=== PATIENT | male | born 1995 ===

== ENCOUNTER 2018-11-26 12:19 | Day surgery (SDC) | payer BC, SELFPAY ==
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
--- NOTE | 2018-11-26 | PATH_ITS ---
[facility] Accession Number: [id number] . 01 Material submitted: . PART A: gastrointestinal site - GASTRIC POLYP FUNDUS PART B: esophagus - DISTAL ESOPHAGEAL BIOPSY PART C: esophagus - MID ESOPHAGEAL BIOPSIES . 01 Clinical history: . B-C: EVALUATE FOR EOSINOPHILIC ESOPHAGITIS . 02 Diagnosis: A. Gastric Fundus, Polyp: Fundic gland polyp. No evidence of Helicobacter organisms on H/E stain. Negative for intestinal metaplasia, dysplasia or malignancy. . B. Distal Esophagus, Biopsy: Squamocolumnar junctional mucosa with focal specialized intestinal metaplasia; please see comment. Up to 3 eosinophils per 40X high-power field. Negative for dysplasia or malignancy. . C. Mid Esophagus, Biopsies: Squamous epithelium with increased intraepithelial eosinophils (up to 15 per 40X high-power field); please see comment. Negative for dysplasia or malignancy. MRV/11/27/2018 . 02 Comment: Part B) The findings of focal specialized intestinal metaplasia would be consistent with Konx's esophagus in the appropriate endoscopic setting. . Part C) The finding of intraepithelal eosinophilia would support a clinical impression of eosinophilic esophagitis. The differential diagnosis also includes gastroesophageal reflux, drug reaction and food allergies. . 02 Electronically signed: . Jeff Pimentel MD, PhD, Pathologist NPI- [id number] . 01 Gross description: . Part A: GASTRIC POLYP FUNDUS: Received in formalin are 2 fragment(s) of patel, soft tissue measuring 0.1 x 0.1 x 0.1 cm to 0.2 x 0.2 x 0.2 cm which is entirely submitted and submitted entirely in 1 cassette(s) Part B: DISTAL ESOPHAGEAL BIOPSY: Received in formalin are multiple fragment(s) of patel, soft tissue measuring 0.1 x 0.1 x 0.1 cm to 0.3 x 0.2 x 0.2 cm which is entirely submitted and submitted entirely in 1 cassette(s) Part C: MID ESOPHAGEAL BIOPSIES: Received in formalin are 2 fragment(s) of patel, soft tissue measuring 0.1 x 0.1 x 0.1 cm to 0.2 x 0.2 x 0.1 cm which is entirely submitted and submitted entirely in 1 cassette(s) /[facility] /[facility] . 02 Pathologist provided ICD-10: K22.70, K20.0, K31.7 . 02 CPT . 679897, 445299, [id number] Specimen Comment: A duplicate report has been generated due to demographic updates. Performed at: 01 [facility] [address] [place] [address], [place], [place] [id number] MD Braulio Ken MD Phone: [phone] Performed at: 02 [facility] [address] [place], [place] [id number] MD Kera Jerome MD Phone: [phone]
[2018-11-26 12:59] VITALS: BP 106/60; PULSE 63; RESP 16; TEMP 36.8; O2SAT 100; BMI 18.9
[2018-11-26] MEDS: SODIUM CHLORIDE 0.9% 1,000 ML 200 ML IV (13:16)
--- NOTE | 2018-11-26 13:16 | PM.HP.1 ---
History of Present Illness Date Patient Seen: 11/26/18 Time Patient Seen: 13:16 Chief complaint: [id number] Narrative: Patient seen and examined Unchanged since recent clinic note Plan for EGD with biopsies today Some concern for eosinophilic esophagitis Patient History Surgical History (Updated 11/04/18 @ 11:37 by Luanne Randhawa RN) Hx of appendectomy (Resolved) Family History (Updated 11/04/18 @ 11:43 by Luanne Randhawa RN) Father Hypertension Heart disease Grandmother Heart disease Social History (Updated 11/04/18 @ 11:47 by Luanne Randhawa RN) household members: significant other and children Smoking Status: Never smoker alcohol intake: never substance use type: marijuana Family & Social History Family History (Updated 11/04/18 @ 11:43 by Luanne Randhawa RN) Father Hypertension Heart disease Grandmother Heart disease Social History: household members significant other,children Tobacco & Substance use: Smoking Status Never smoker alcohol intake never Meds Home Medications Medication Instructions Recorded Confirmed Type No Known Home Medications 11/04/18 11/04/18 History Allergies Allergy/AdvReac Type Severity Reaction Status Date / Time No Known Drug Allergies Allergy Unverified 11/04/18 13:01 Exam Vital Signs (past 8 hours): - 11/26/18 12:59 Temperature 98.3 F Pulse Rate 63 Respiratory Rate 16 Blood Pressure 106/60 Pulse Oximetry 100 Oxygen Delivery Method Room Air
[2018-11-26] MEDS: TETRACAINE/BENZOCAINE/BUTAMBEN (CETACAINE) BOTTLE 1 SPRAY TOP (14:18)
[2018-11-26] MEDS: LIDOCAINE 4% SOLN 50 ML 20 ML TOP (14:19)
[2018-11-26] MEDS: MIDAZOLAM 5 MG/5 ML VIAL IV (14:35)
[2018-11-26] MEDS: fentaNYL 250 MCG/5 ML INJ IV (14:36)
--- NOTE | 2018-11-26 14:45 | PM.OP.ENDO ---
Operative Date/Time/Diagnoses Date of procedure: 11/26/18 Time of procedure: 14:45 Pre-op diagnosis: Dysphagia Post-op diagnosis: same Procedure & Clinicians Study performed: EGD Esophageal biopsy Same procedure as scheduled: Yes Indications: 23-year-old man with new onset of dysphagia to solid food. With slow progression. In the setting of gastroesophageal reflux symptomatology -given this I am concerned for a possible mechanical obstruction including a reflux related esophageal web or ring, as a young male he is in the demographic eosinophilic esophagitis. Surgeon: Son Santoyo Procedure Notes SCOAP/Timeout: completed Procedure in detail: Patient brought to the endoscopy suite. Time-out was completed. He was sedated with a total of 4 mg midazolam and 100 mcg of fentanyl. Bite block was placed. Endoscope was advanced through the oral cavity into the pharynx and posterior to the epiglottis down the cervical esophagus. The endoscope was passed without incident into the stomach through the pylorus and into the 1st portion of the duodenum. The duodenal mucosa appeared healthy without any ulcerative edematous changes. The pylorus a similarly appeared to have healthy mucosa without stenosis or ulceration. The gastric mucosa had healthy rugae without ulcerations as well. There was a polyp within the fundus that was removed with biopsy forceps. The endoscope was then was retroflexed there was a grade 2 Hill valve The scope was withdrawn the Z-line was identified at 41 cm as was the hiatus. The Z-line was uniform Within the mid and distal esophagus there was a generalized mild striped erythema, there is accentuation of the circular musculature folds in a dynamic pattern. No esophageal webs ulcerations or rings. No esophageal masses. There was some nodularity that was quite subtle. A total of 6 distal esophageal biopsies were obtained and a total of 4 mid esophageal biopsies were obtained to evaluate for eosinophilic esophagitis. The scope was withdrawn without difficulty no lesions in the proximal soft Scope withdrawal time: na Sedation minutes: 22 Specimen(s): other (Esophageal biopsies, gastric biopsies) Complications: none Impression: 1. Faint nodular changes within the esophagus possibly suggestive of the eosinophilic esophagitis biopsies pending 2. Grade to Hill valve Plan for aftercare: PACU then home Follow up: weeks Disposition: PACU
[2018-11-26 14:47] VITALS: BP 104/64; PULSE 64; RESP 18; TEMP 37; O2SAT 100
[2018-11-26 14:52] VITALS: BP 105/58; PULSE 65; RESP 17; O2SAT 96
[2018-11-26 14:57] VITALS: BP 100/56; PULSE 62; RESP 15; O2SAT 97
[2018-11-26 15:04] VITALS: BP 106/72; PULSE 62; RESP 19; TEMP 36.9; O2SAT 100
[2018-11-26 15:10] VITALS: BP 101/78; PULSE 66; RESP 16; TEMP 36.7; O2SAT 100
--- NOTE | 2018-11-26 15:19 | SUR.PHASEII ---
Mom brought in, instructions discussed, mom with additional questions, awaiting dr martínez to return.
--- NOTE | 2018-11-26 16:18 | SUR.PHASEII ---
Appt made for f/u. pt left when ready and left in stable condition.
== END 2018-11-26 15:40 | disposition home or self-care (01) ==
PROVIDERS: PCP Registered Nurse; Visit Provider Surgery
PROC: 0DJ08ZZ Inspection of Upper Intestinal Tract, Via Natural or Artificial Opening Endoscopic (ICD-10-PCS; CPT 43235; principal; 2018-11-26 14:00)
DX: R13.10 Dysphagia, unspecified (principal); K31.7 Polyp of stomach and duodenum; K20.0 Eosinophilic esophagitis
CPT/HCPCS: 43239; 99152; J2250; J3010